=== PATIENT | female | born 1980 | race Two or more races ===

== ENCOUNTER 2019-01-28 16:44 | Emergency (ER) | payer OTHER ==
[~2019-01-28] VITALS: Ht 157.5 cm; Wt 79.4 kg
[~2019-01-28 16:44] MED LIST: BACTRIM 400-801 TAB PO; PYRIDIUM200 MG PO
== END 2019-01-28 20:31 | disposition home or self-care (01) ==
LOC: ER 16:44
DX: J11.1 Influenza due to unidentified influenza virus with other respiratory manifestations (principal)

== ENCOUNTER 2019-04-14 11:40 | Emergency (ER) | payer OTHER ==
[~2019-04-14] VITALS: Ht 157.5 cm; Wt 104.3 kg
== END 2019-04-14 16:19 | disposition home or self-care (01) ==
LOC: ER 11:40
DX: B34.9 Viral infection, unspecified (principal)

== ENCOUNTER 2020-06-11 15:20 | Emergency (ER) | payer OTHER ==
[~2020-06-11] VITALS: Ht 157.5 cm; Wt 97.5 kg
== END 2020-06-11 16:49 | disposition home or self-care (01) ==
LOC: ER 15:20
DX: M62.830 Muscle spasm of back (principal); M54.5 Low back pain

== ENCOUNTER 2021-03-12 12:48 | Emergency (ER) | payer OTHER ==
[~2021-03-12] VITALS: Ht 157.5 cm; Wt 104.3 kg
== END 2021-03-12 14:44 | disposition home or self-care (01) ==
LOC: ER 12:48
DX: T20.16XA Burn of first degree of forehead and cheek, initial encounter (principal); X19.XXXA Contact with other heat and hot substances, initial encounter; Y93.89 Activity, other specified; Y92.098 Other place in other non-institutional residence as the place of occurrence of the external cause; Y99.8 Other external cause status

== ENCOUNTER 2021-09-04 18:30 | Emergency (ER) | payer OTHER ==
[~2021-09-04] VITALS: Ht 157.5 cm; Wt 107.0 kg
[2021-09-04] MEDS ORDERED: ZITHROMAX500 MG PO (22:50)
[2021-09-04] MEDS ORDERED: TESSALON PERLE100 M1 PO (22:50)
== END 2021-09-04 22:54 | disposition home or self-care (01) ==
LOC: ER 18:30
DX: J06.9 Acute upper respiratory infection, unspecified (principal); J45.909 Unspecified asthma, uncomplicated; Z03.818 Encounter for observation for suspected exposure to other biological agents ruled out

== ENCOUNTER 2021-10-22 11:06 | Emergency (ER) | payer OTHER ==
[~2021-10-22] VITALS: Ht 157.5 cm; Wt 104.3 kg
[~2021-10-22 11:06] MED LIST changes: +TESSALON PERLE100 M1 PO; +ZITHROMAX500 MG PO
== END 2021-10-22 13:20 | disposition home or self-care (01) ==
LOC: ER 11:06
DX: J40 Bronchitis, not specified as acute or chronic (principal); B34.9 Viral infection, unspecified

== ENCOUNTER 2021-11-12 22:27 | Emergency (ER) | payer OTHER ==
[~2021-11-12] VITALS: Ht 157.5 cm; Wt 108.0 kg
== END 2021-11-12 23:05 | disposition home or self-care (01) ==
LOC: ER 22:27
DX: T78.1XXA Other adverse food reactions, not elsewhere classified, initial encounter (principal); K13.0 Diseases of lips

== ENCOUNTER 2022-11-20 11:27 | Emergency (ER) | payer OTHER ==
[~2022-11-20] VITALS: Ht 157.5 cm; Wt 104.3 kg
== END 2022-11-20 14:11 | disposition home or self-care (01) ==
LOC: ER 11:27
DX: M94.0 Chondrocostal junction syndrome [Tietze] (principal)

== ENCOUNTER 2023-08-24 22:23 | Emergency (ER) | payer OTHER ==
[~2023-08-24] VITALS: Ht 157.5 cm; Wt 108.9 kg
[2023-08-25 01:45] LABS: HEMATOCRIT 31.5 % (36.0-45.00); HEMOGLOBIN 9.9 g/dL (12.0-15.00); MEAN CORPUSCULAR HEMOGLOBIN 21.4 pg (27.00-32.0); MEAN CORPUSCULAR HGB CONC 31.4 g/dl (32.0-36.0); PLATELET COUNT 346 K/uL (150-450); RED BLOOD COUNT 4.63 M/uL (4.00-6.00); RED CELL DISTRIBUTION WIDTH 16.9 % (11.5-14.5)
[2023-08-25] MEDS ORDERED: ZITHROMAX500 MG PO (02:13)
[2023-08-25] MEDS ORDERED: TUSNEL LIQUID178 ML PO (02:13)
== END 2023-08-25 04:07 | disposition home or self-care (01) ==
LOC: ER 22:24
PROVIDERS: General Practice
DX: R05.9 Cough, unspecified (principal); Z20.822 Contact with and (suspected) exposure to COVID-19; Z91.013 Allergy to seafood

== ENCOUNTER 2023-09-02 09:27 | Emergency (ER) | payer OTHER ==
[~2023-09-02] VITALS: Ht 157.5 cm; Wt 108.9 kg
[~2023-09-02 09:27] MED LIST changes: +TUSNEL LIQUID178 ML PO
[2023-09-02 11:43] LABS: HEMATOCRIT 34.3 % (36.0-45.00); HEMOGLOBIN 10.8 g/dL (12.0-15.00); MEAN CORPUSCULAR HEMOGLOBIN 21.5 pg (27.00-32.0); MEAN CORPUSCULAR HGB CONC 31.6 g/dl (32.0-36.0); PLATELET COUNT 316 K/uL (150-450); RED BLOOD COUNT 5.04 M/uL (4.00-6.00); RED CELL DISTRIBUTION WIDTH 17.3 % (11.5-14.5)
[2023-09-02] MEDS ORDERED: AMOX-CLAV 875-1 EACH PO (12:45)
[2023-09-02] MEDS ORDERED: TUSNEL LIQUID178 ML PO (12:46)
== END 2023-09-02 12:50 | disposition home or self-care (01) ==
LOC: ER 09:27
PROVIDERS: General Practice
DX: J03.90 Acute tonsillitis, unspecified (principal); Z20.822 Contact with and (suspected) exposure to COVID-19

== ENCOUNTER 2023-12-25 18:28 | Emergency (ER) | payer OTHER ==
[~2023-12-25] VITALS: Ht 157.5 cm; Wt 99.8 kg
[~2023-12-25 18:28] MED LIST changes: +AMOX-CLAV 875-1 EACH PO
[2023-12-25] MEDS ORDERED: FAMOTIDINE/PF 20 MG in 0.9 % SODIUM CHLORIDE 8 ML IV PUSH STA (19:19)
[2023-12-25] MEDS ORDERED: ONDANSETRON HCL 2 MG/ML VIAL IV ONE (19:30)
[2023-12-25] MEDS ORDERED: 0.9 % SODIUM CHLORIDE 1,000 ML IV SCH (19:30)
[2023-12-25] MEDS ORDERED: DIPHENOXYLATE HCL/ATROPINE 1 UDTAB TABLET PO ONE (19:30)
[2023-12-25] MEDS ORDERED: KETOROLAC TROMETHAMINE 30 MG VIAL IV ONE (19:30)
[2023-12-25 20:06] LABS: HEMATOCRIT 33.7 % (36.0-45.00); HEMOGLOBIN 10.5 g/dL (12.0-15.00); MEAN CORPUSCULAR HEMOGLOBIN 20.4 pg (27.00-32.0); MEAN CORPUSCULAR HGB CONC 31.3 g/dl (32.0-36.0); PLATELET COUNT 352 K/uL (150-450); RED BLOOD COUNT 5.18 M/uL (4.00-6.00); RED CELL DISTRIBUTION WIDTH 18.6 % (11.5-14.5)
[2023-12-25 20:21] LABS: ALBUMIN 3.3 gm/dL (3.4-5.0); BILIRUBIN TOTAL 0.43 mg/dL (0.3-1.2); BILIRUBIN,CONJUGATED 0.12 mg/dL (0.0-0.2); BILIRUBIN,UNCONJUGATED 0.31 mg/dL (0.0-0.6); CALCIUM 9.2 mg/dL (8.5-10.1); CREATININE SERUM 0.87 mg/dL (0.55-1.02); GFR 70.41; GLOBULINA 4.4 G/DL (2.4-3.5); POTASSIUM 3.63 mEq/L (3.5-5.1); TOTAL PROTEIN 7.7 gm/dL (6.4-8.2)
[2023-12-25] MEDS ORDERED: PEPCID AC20 MG PO (21:13)
[2023-12-25] MEDS ORDERED: ONDANSETRON ODT8 MG PO (21:13)
== END 2023-12-25 21:37 | disposition home or self-care (01) ==
LOC: ER 18:29
PROVIDERS: General Practice
DX: K52.9 Noninfective gastroenteritis and colitis, unspecified (principal); Z91.013 Allergy to seafood

== ENCOUNTER 2024-08-10 09:18 | Emergency (ER) | payer OTHER ==
[~2024-08-10] VITALS: Ht 157.5 cm; Wt 103.4 kg
[~2024-08-10 09:18] MED LIST changes: +ONDANSETRON ODT8 MG PO; +PEPCID AC20 MG PO
[2024-08-10] MEDS ORDERED: KETOROLAC TROMETHAMINE 30 MG VIAL IM STA (11:11)
[2024-08-10] MEDS ORDERED: CEFTRIAXONE SODIUM 1,000 MG VIAL IM STA (11:11)
== END 2024-08-10 11:28 | disposition home or self-care (01) ==
LOC: ER 09:19
DX: J03.80 Acute tonsillitis due to other specified organisms (principal); Z91.013 Allergy to seafood

== ENCOUNTER 2024-11-24 09:25 | Emergency (ER) | payer OTHER ==
[~2024-11-24] VITALS: Ht 157.5 cm; Wt 99.8 kg
[2024-11-24] MEDS ORDERED: KETOROLAC TROMETHAMINE 60 MG VIAL IM ONE ×2 (09:45→10:56)
[2024-11-24] MEDS ORDERED: MONTELUKAST SODIUM 10 MG TABLET PO ONE (09:45)
[2024-11-24 11:42] LABS: HEMATOCRIT 35.3 % (36.0-45.00); HEMOGLOBIN 11.4 g/dL (12.0-15.00); MEAN CELL VOLUME 71.4 fL (80.00-100.00); MEAN CORPUSCULAR HGB CONC 32.3 g/dl (32.0-36.0); PLATELET COUNT 304 K/uL (150-450); RED BLOOD COUNT 4.94 M/uL (4.00-6.00); RED CELL DISTRIBUTION WIDTH 17.2 % (11.5-14.5)
[2024-11-24] MEDS ORDERED: SINGULAIR10 MG PO (12:48)
[2024-11-24] MEDS ORDERED: PEPCID AC20 MG PO (12:48)
[2024-11-24] MEDS ORDERED: AZITHROMYCIN500 MG PO (12:48)
[2024-11-24] MEDS ORDERED: LEVALBUTER0.63 MG/3 IH (12:48)
== END 2024-11-24 13:01 | disposition home or self-care (01) ==
LOC: ER 09:27
PROVIDERS: General Practice
DX: J02.9 Acute pharyngitis, unspecified (principal); Z20.822 Contact with and (suspected) exposure to COVID-19; Z91.013 Allergy to seafood

== ENCOUNTER 2025-04-12 16:06 | Emergency (ER) | payer OTHER ==
[~2025-04-12] VITALS: Ht 157.5 cm; Wt 99.3 kg
[~2025-04-12 16:06] MED LIST changes: +AZITHROMYCIN500 MG PO; +LEVALBUTER0.63 MG/3 IH; +SINGULAIR10 MG PO
[2025-04-12] MEDS ORDERED: DAFLONEX-XL 11300 MG (17:11)
[2025-04-12] MEDS ORDERED: GUAIFENESIN/DEXTROMETHORPHAN 100MG/10ML BLIST.PACK PO ONE ×2 (18:45→18:55)
[2025-04-12] MEDS ORDERED: ACETAMINOPHEN 500 MG GEL..CAP PO ONE ×2 (18:55→19:00)
[2025-04-12] MEDS ORDERED: ALBUTEROL SULFATE 3 ML/2.5 MG AMPUL.NEB IH ONE ×2 (19:00→19:09)
[2025-04-12] MEDS ORDERED: IPRATROPIUM BROMIDE 0.5 MG/2.5 ML AMPUL.NEB IH ONE ×2 (19:00→19:09)
[2025-04-12 19:33] LABS: BASO % 0.5 % (0.1-1.2); EOS # 0.02 (0.04-0.54); EOS % 0.3 % (0.7-7.0); HEMATOCRIT 36.4 % (34.1-44.9); HEMOGLOBIN 11.2 g/dL (11.2-15.7); LYMPH # 1.52 (1.18-3.74); LYMPH % 19.8 % (19.3-53.1); MEAN CORPUSCULAR HEMOGLOBIN 22.1 pg (25.6-32.2); NEUT # 5.09 (1.56-6.13); NEUT % 66.1 % (34.0-71.1); PLATELET COUNT 258 K/uL (163-369); RED BLOOD COUNT 5.06 M/uL (3.93-5.22); RED CELL DISTRIBUTION WIDTH 17.9 % (11.6-14.4)
[2025-04-12 20:00] LABS: INFLUENZA A AG NEGATIVE (NEGATIVE); INFLUENZA B AG NEGATIVE (NEGATIVE)
[2025-04-12 20:02] LABS: COVID-19 AG POSITIVE (NEGATIVE)
[2025-04-12] MEDS ORDERED: ALBUTEROL1.25 MG/3 IH (21:08)
[2025-04-12] MEDS ORDERED: TUSSIN DM LIQU118 ML PO (21:08)
[2025-04-12] MEDS ORDERED: IPRATROPIU0.2 MG/1 M IH (21:08)
[2025-04-12] MEDS ORDERED: ZITHROMAX500 MG PO (21:13)
== END 2025-04-12 21:26 | disposition home or self-care (01) ==
LOC: ER 16:06
PROVIDERS: Preventive Medicine Public Health & General Preventive Medicine
DX: U07.1 COVID-19 (principal); J00 Acute nasopharyngitis [common cold]; Z91.013 Allergy to seafood